=== PATIENT | male | born 1990 | race Caucasian/White ===

== ENCOUNTER 2022-02-10 08:51 | Outpatient (CLI) | payer BC, SELFPAY ==
[2022-02-10 14:19] LABS: Albumin* 4.5 g/dL (3.3-5.0)
[2022-02-10 14:22] LABS: Alkaline Phosphatase* 67 U/L (40-150); Aspartate Amino Transferase* 26 U/L (12-35); Bilirubin Direct* 0.3 mg/dL (0.0-0.5); Bilirubin Total* 0.6 mg/dL (0.1-1.5); Total Protein* 7.8 g/dL (6.0-8.3)
[2022-02-10 14:23] LABS: Alanine Aminotransferase* 16 U/L (4-50)
== END 2022-02-10 08:52 | disposition home or self-care (01) ==
LOC: LKVREF 08:53
PROVIDERS: PCP Emergency Medicine; Visit Provider Emergency Medicine
DX: Z00.00 Encounter for general adult medical examination without abnormal findings (principal); L65.9 Nonscarring hair loss, unspecified; F32.9 Major depressive disorder, single episode, unspecified; Z72.89 Other problems related to lifestyle
CPT/HCPCS: 80076